=== PATIENT | female | born 1975 ===

== ENCOUNTER → 2021-04-29 | Outpatient (CLI) | payer BC ==
[~2021-04-29] MED LIST: INSULIN NOVO100 U/ML IJ; NO HOME MEDICATIONS; NOVOLOG 100U100 U/ML; NOVOLOG 100U100 U/ML IV
== END ==
LOC: MC.RAD 03-06 14:30
DX: Z12.31 Encounter for screening mammogram for malignant neoplasm of breast (principal)

== ENCOUNTER → 2023-10-26 | Outpatient (CLI) | payer BC | LOC: MC.RAD 10:00 | DX: N63.21 Unspecified lump in the left breast, upper outer quadrant (principal) ==